=== PATIENT | male | born 1995 | race Caucasian/White ===

== ENCOUNTER 2020-06-02 21:28 | Emergency (ER) | payer OTHER, SELFPAY ==
--- NOTE | ~2020-06-02 | XR_ITS ---
EXAMINATION: XR elbow LT min 3V DATE: 06/02/2020 21:53 INDICATION: Left elbow pain TECHNIQUE: Anteroposterior, two oblique and lateral views of the left elbow were obtained. COMPARISON: None. FINDINGS: Alignment is normal. No fracture or joint effusion. Joint spaces are normal. Soft tissues a re unremarkable. IMPRESSION: 1. No acute osseous abnormality. Reviewed, dictated and finalized at location A.
--- NOTE | ~2020-06-02 | XR_ITS ---
EXAMINATION: XR wrist LT min 3V DATE: 06/02/2020 21:52 INDICATION: Left wrist pain, initial encounter TECHNIQUE: Posteroanterior, ulnar deviation, oblique, and lateral views of the left wrist were obtain ed. COMPARISON: None available FINDINGS: There is an acute, traumatic, closed, intra-articular fracture at the lateral aspect of the distal radius. Soft tissue swelling surrounds the fracture. The remaining osseous structures are unr emarkable. IMPRESSION: 1. Acute intra-articular fracture of the distal radius. Reviewed, dictated and finalized at location A.
[2020-06-02 21:31] VITALS: BP 141/68; PULSE 97; RESP 18; TEMP 36.4; O2SAT 100
--- NOTE | 2020-06-02 21:38 | ED.GENADULT ---
HPI - General Adult General Chief complaint: Extremity Injury, Upper Stated complaint: Left wrist injury Time Seen by Provider: 06/02/20 21:33 Source: patient Mode of arrival: ambulatory Limitations: no limitations History of Present Illness HPI narrative: Patient presents for evaluation of left wrist pain. Patient states he is going up a flight of steps when he missed a step, lost his balance, and braced his fall with his left hand. Patient now with dull, aching pain in the left wrist. Patient denies any numbness. No laceration. Mild edema, no bruising that he has noticed. No elbow pain. Patient states pain is dull, aching in nature, worse with movement and radiates into his forearm. No shoulder pain or back pain. No head trauma or loss of consciousness. Patient with abrasions to right knee. He states he is up-to-date on her tetanus. Patient is right-hand dominant. Related Data Allergies Allergy/AdvReac Type Severity Reaction Status Date / Time No Known Allergies Allergy Unverified 04/26/14 15:08 Review of Systems Review of Systems: Narrative: CONSTITUTIONAL: Denies fever CARDIOVASCULAR: Denies chest pain RESPIRATORY: Denies cough or dyspnea. GASTROINTESTINAL: Denies abdominal pain SKIN: Denies rash MUSCULOSKELETAL: Denies back pain NEUROLOGIC: Denies headache PMFSH Past Medical History Medical History ADHD Depression Seizure Family History Family History Mother Family history of malignant neoplasm of breast Other Diabetes mellitus Hypertension Social History Social History Smoking status: Never smoker Alcohol intake: never Gender identity (if verbalized by the patient): Male Exam Narrative: Exam Narrative: GENERAL: Awake, alert, conversant HEAD: Normocephalic, atraumatic. EYES: PERRLA and EOMI. ENT: Nares clear, no rhinorrhea or epistaxis. Mucous membranes moist. NECK: Supple. CHEST: No respiratory distress, breathing even and non labored HEART: Regular rate, sinus rhythm ABDOMEN:Non distended, non tender EXTREMITIES: Mild edema of the left wrist. Radial pulses 2+. Intact sensation median, ulnar, radial nerve distribution. Tenderness over the distal radius. No scaphoid tenderness. Patient has intact flexion of the wrist, limited extension due to pain. Capillary refill less than 3 seconds. No ecchymoses or deformity. SKIN: Warm, dry, no rash. NEURO:No focal deficits. Alert and oriented x3 Course Vital Signs Vital signs: Vital Signs Temperature 36.4 C L 06/02/20 21:31 Pulse Rate 97 06/02/20 21:31 Respiratory Rate 18 06/02/20 21:31 Blood Pressure 141/68 H 06/02/20 21:31 Pulse Oximetry 100 06/02/20 21:31 Temperature 36.4 C L 06/02/20 21:31 Pulse Rate 97 06/02/20 21:31 Respiratory Rate 18 06/02/20 21:31 Blood Pressure 141/68 H 06/02/20 21:31 Pulse Oximetry 100 06/02/20 21:31 Procedures Orthopedic Splinting/Casting Injury #1: Splinting/Casting Date: 06/02/20 Splinting/Casting Time: 22:03 Side: left Upper Extremity Injury Location: wrist Upper Extremity Immobilizer: sugar tong splint Splint: customized in ED OCL: volar Pre-Procedure Neuro Vascular Exam: normal Post-Procedure Neuro Vascular Exam: normal Medical Decision Making MDM Narrative Medical decision making narrative: Patient presented after a fall on an outstretched hand, here with left intra-articular radius fracture. Not severely displaced. Patient is neurovascularly intact. Placed in a sugar tong splint and given orthopedic surgery follow-up. Differential Diagnosis Differential Diagnosis: Fracture, sprain, hematoma Vital Signs Vital Signs: Vital Signs Temperature 36.4 C L 06/02/20 21:31 Pulse Rate 97 06/02/20 21:31 Respiratory Rate 18 06/02/20 21:31
[2020-06-02 22:40] VITALS: BP 139/83; PULSE 79; RESP 14; TEMP 36.4; O2SAT 99
[2020-06-02] MEDS: oxyCODONE/ACETAMINOPHEN 5-325 MG TABLET 1 TABLET PO (22:41)
[2020-06-02 22:56] VITALS: TEMP 36.4
== END 2020-06-02 22:44 | disposition home or self-care (01) ==
PROVIDERS: Emergency Provider Emergency Medicine; PCP Family Medicine
DX: S52.572A Other intraarticular fracture of lower end of left radius, initial encounter for closed fracture (principal); W10.9XXA Fall (on) (from) unspecified stairs and steps, initial encounter
CPT/HCPCS: 29125; 73080; 73110; 99284; A9270

== ENCOUNTER 2021-08-29 18:15 | Outpatient (CLI) | payer OTHER, SELFPAY ==
[2021-08-29 19:46] LABS: SARS-CoV-2 RNA PCR Positive (Negative)
== END 2021-08-29 18:16 | disposition home or self-care (01) ==
PROVIDERS: PCP Family Medicine; Visit Provider Family Medicine
DX: U07.1 COVID-19 (principal); R05 Cough; R52 Pain, unspecified; J02.9 Acute pharyngitis, unspecified
CPT/HCPCS: C9803; U0003; U0005